=== PATIENT | male | born 1990 | race Caucasian/White ===

== ENCOUNTER 2019-11-21 23:13 | Emergency (ER) | payer OTHER ==
[~2019-11-21] VITALS: Ht 180.3 cm; Wt 102.1 kg
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
[2019-11-21] MEDS ORDERED: LORAZEPAM 1 MG TABLET ONE (23:55)
[2019-11-21] MEDS ORDERED: IBUPROFEN 800 MG TABLET ONE (23:55)
[2019-11-22] MEDS ORDERED: IBUPROFEN 800 MG TABLET PO ONE
[2019-11-22] MEDS ORDERED: LORAZEPAM 1 MG TABLET PO ONE
--- NOTE | 2019-11-22 01:00 | NUR ---
DR RICCI MADE PATIENT AWARE OF TEST RESULTS. WILL DC HOME.
[2019-11-22 01:08] VITALS: BP 125/65
--- NOTE | 2019-11-22 01:08 | NUR ---
Patient discharged to home in stable conditon. Written and verbal after care instructions given. Patient verbalizes understanding of instructions.
== END 2019-11-22 01:08 | disposition home or self-care (01) ==
LOC: ER 23:17
DX: S13.4XXA Sprain of ligaments of cervical spine, initial encounter (principal); S23.41XA Sprain of ribs, initial encounter; S83.91XA Sprain of unspecified site of right knee, initial encounter; S09.90XA Unspecified injury of head, initial encounter; F17.290 Nicotine dependence, other tobacco product, uncomplicated; V49.9XXA Car occupant (driver) (passenger) injured in unspecified traffic accident, initial encounter; Y93.89 Activity, other specified; Y92.89 Other specified places as the place of occurrence of the external cause; Y99.8 Other external cause status
CPT/HCPCS: 70450; 71101; 72125; 73562; A4663